=== PATIENT | female | born 1960 | race Caucasian/White ===

== ENCOUNTER → 2016-09-28 | Outpatient (CLI) | payer MEDICARE, BC ==
[~2016-09-28] MED LIST: ACYC800T PO; ALPR0.5T6 PO; BUTA1TAB23 PO; FENO160T PO; LEVO25TA4 PO; MINO100C PO; ONDA-35 PO; SIMV40TA3 PO; SITA100T PO; TIZA6CAP PO; TRAZ150T55 PO; TRIA15CR TP
--- NOTE | 2016-09-28 14:58 | PAIN ---
DATE OF SERVICE: 09/28/2016 DIAGNOSES: Lumbar radiculopathy with lumbar post-laminectomy syndrome. HISTORY OF PRESENT ILLNESS: The patient is a 56-year-old female who returns for followup status post physical therapy. She is now 2 weeks into her ____ physical therapy regimen. She has otherwise been doing exercises and stretching on her own, but she feels that the therapy maybe helping slightly. There was some degree of soreness involved in the low back and bilateral lower extremities at this time. The patient was recently seen on 08/11/2016. We had renewed Medrol Dosepak for her as well as oxycodone, which she reports does help significantly without any side effects. The patient complains of pain in the low back, bilateral lower extremities, radiating into the gluteus, posterior thighs, posterior lower legs to the ankles and feet, rates it a 6 on a scale of 10, currently is aching and dull and says her legs feel like "jelly." The patient reports also pain across the low back, which is aching and stabbing at times, worse with activity, standing, walking, changing positions or sitting for more than 15-20 minutes. Patient reports that she is sleeping better since the therapy started with less pain, but still has some significant pain in the low back and legs themselves. The patient did have a followup appointment with her neurosurgeon, also hide [facility] man with no new findings by her report on either. PHYSICAL EXAMINATION: VITAL SIGNS: The patient's blood pressure is 106/45, pulse 56, respirations 18, temperature is 97.9 degrees Fahrenheit, height is 5 feet 4 inches, weighs 158 pounds. GENERAL: The patient is awake, alert, oriented and appropriate, very pleasant demeanor. HEENT: Shows normocephalic, atraumatic. Extraocular movements are intact and symmetrical. Oral cavity, mucous membranes are moist and pink. Dentition is intact. NECK: Shows anterior throat supple without palpable lymphadenopathy noted. Swallow reflex is symmetrical. Neck shows full rotation and motion of cervical spine both laterally as well as extension and flexion without difficulty. CHEST: Shows normal on inspection. Breath sounds are clear to auscultation bilaterally. HEART: Shows S1 and S2 clear. No murmurs ausculated. ABDOMEN: Soft, nontender, and nondistended. No palpable organomegaly is noted. No rebound or guarding demonstrated. BACK: Shows spine grossly midline. Well-healed surgical scar is noted in the lumbar distribution with a slight flattening of lumbar lordotic curvature. Lumbar paraspinous muscle is diffusely tender throughout the upper, middle and lower distribution of the paraspinous muscles bilaterally without trigger points, without radiation. No tenderness over the sacrum or sacroiliac regions. The patient shows good rotation and motion both laterally as well as extension flexion without significant increase in pain. EXTREMITIES: Lower extremity show deep tendon reflexes at 1+ in the patellar and tendo calcaneus tendons are equal. Motor exam is approximately 4 on a scale of 5 with dorsiflexion and extension, quadriceps and hamstring flexion, but are equal and symmetrical. Peripheral pulses are 1+ posterior tibia and dorsalis pedis pulses bilaterally. PLAN: Options were discussed with the patient. The patient's old chart was reviewed as her current medication regimen and updated. Current review of systems updated today as well. We will plan on conservative measures at this time as she would like to avoid interventional techniques if possible. We did discuss caudal approach epidural steroid injection with she and her using description as well as anatomical models, but we will renew patient's Medrol-Dosepak at this time. Patient was cautioned as to the side effects of the steroid medication especially increased blood sugar while taking it as patient is type 2 diabetic. Also we will refill patient's oxycodone. The patient was informed that this will not be an ongoing refill and we would take care of these medications while she needs them, while she is getting into physical therapy and if she does pursue interventional techniques then we would only be prescribing these while she is being treated at our facility. Patient voices understanding as does her . Patient is given instructions as well as side effects to be aware of with the medications, was encouraged to followup with physical therapy, maintain the stretching ____ exercises that they are instructing her to do at home religiously, maintain hydration status as well. Patient will followup after physical therapy, ____ determine if significant improvement enough or if will pursue caudal epidural steroid injection at that time. MARLEN COHEN MD DR: REJI/ke JOB#: [id number] / [id number]
== END | disposition home or self-care (01) ==
LOC: PNCL 08:13
PROVIDERS: ATTEND Anesthesiology
DX: M54.16 Radiculopathy, lumbar region (principal); M96.1 Postlaminectomy syndrome, not elsewhere classified
CPT/HCPCS: G0463

== ENCOUNTER → 2016-11-03 | Outpatient (CLI) | payer MEDICARE, BC ==
--- NOTE | 2016-11-04 05:08 | PAIN ---
DATE OF SERVICE: 11/03/2016 DIAGNOSES: 1. Lumbar radiculopathy. 2. Post-lumbar laminectomy syndrome. HISTORY OF PRESENT ILLNESS: The patient is a 56-year-old female who returns for followup, last seen on 09/28/2016, at which time, patient was for physical therapy, she did about 3 weeks of this and the pain was getting worse in her low back and bilateral lower extremities and she had to quit physical therapy. The patient is getting ready to leave the town in about 1 week for a 2-week period and reports she is apprehensive in trying epidural injection at this time as she wants to feel better for her trip, but she is scared that she may be worse with the unknown results with her potential injection. The patient reports that she is doing well; however, with the low back and the pain radiating to bilateral posterior gluteus, posterior thighs, posterior calf, is an 8 on a scale of 10 this morning, but taking oxycodone has been decreasing it to a fairly good extend about 3, occasionally 3-4 tablets a day on average. The patient reports no side effects of the medication, at about 75% improvement without side effects. The patient reports a constant aching pain rated an 8 in the low back, bilateral lower extremities as it was previously. The patient reports no new motor or sensory deficits, no new bowel or bladder incontinence or other complaints. PHYSICAL EXAMINATION: VITAL SIGNS: The patient's blood pressure 120/71, pulse 74, respirations 18, temperature is 98.2 degrees Fahrenheit, height 5 feet 4 inches, weight is 154 pounds. GENERAL: The patient is awake, alert, oriented, appropriate, very pleasant demeanor. HEENT: Head shows normocephalic and atraumatic. The patient wears eye glasses. Extraocular movements are intact and symmetrical. Oral cavity shows mucous membranes moist and pink. NECK: Shows anterior throat supple without palpable lymphadenopathy noted. Swallow reflex is symmetrical. CHEST: Shows normal on inspection. Breath sounds are clear to auscultation bilaterally. HEART: Shows S1 and S2 clear. No murmurs auscultated. ABDOMEN: Obese, soft, nontender, nondistended. No palpable organomegaly. No rebound or guarding demonstrated. BACK: Shows spine grossly midline, some minor flattening of lumbar lordotic curvature previously, well-healed surgical scarring noted. Lumbar paraspinous musculature is normal on inspection and symmetrical, with palpation, is moderately tender diffusely, but firm with normal muscle girth in the upper, middle and lower distribution, more tender in lower distribution bilaterally without trigger points or radiation, without asymmetry, but no tenderness over the sacrum or sacroiliac regions. LOWER EXTREMITIES: Showed deep tendon reflexes at 1+ in the patellar and tendo calcaneus tendons. Motor exam is approximately 4 on a scale of 5, but is symmetrical with dorsiflexion, extension, quadriceps and hamstring flexion and is equal. Peripheral pulses are 1+ posterior tibial and dorsalis pedis pulses. No peripheral edema is noted bilaterally. Options were discussed with the patient and the patient's old chart was reviewed as her current medication regimen updated. Current review of systems updated today as well. Discussed trying a Medrol Dosepak and taking one with her as well on her trip ____ for 2 weeks. Also, we will refill the patient's oxycodone at 10 mg, 100 tablets for one month or more supply. The patient was given instruction as well as side effects to be aware of each of the medications. Also, encouraged to increase her stretching and strengthening and activity as tolerated. We also talked for about starting some water therapy through physical therapy when she returns from her trip as well as possible caudal epidural steroid injection at that time. The patient was given instruction as well as side effects to be aware of the use of her medications. We will follow up as scheduled. MARLEN COHEN MD DR: REJI/ke JOB#: [id number] / [id number]
== END | disposition home or self-care (01) ==
LOC: PNCL 09:53
PROVIDERS: ATTEND Anesthesiology
DX: M54.16 Radiculopathy, lumbar region (principal); M96.1 Postlaminectomy syndrome, not elsewhere classified
CPT/HCPCS: 99212

== ENCOUNTER → 2016-12-20 | Outpatient (CLI) | payer BC ==
[~2016-12-20] MED LIST changes: +OXYC-250 PO
--- NOTE | 2016-12-21 05:43 | PAIN ---
DATE OF SERVICE: 12/20/2016 PROGRESS NOTE FOR PAIN CLINIC DIAGNOSIS: Lumbar radiculopathy with post-lumbar laminectomy syndrome. HISTORY OF PRESENT ILLNESS: The patient is a 56-year-old female who returns for followup status post evaluation and medication management with oxycodone. The patient has done well with this, but it is becoming less and less effective for her. The patient still has significant pain in her low back and bilateral lower extremities. She is getting more frustrated with her pain as it is significant, since she got back from vacation, she was unable to walk some of the distances that she needed to do while she was there and this was disappointing as well. The patient reports it as an aching, sharp, shooting pain, as cramping, tingling, occasionally unbearable with radiating and constant pain as well, worse with walking, standing, anywhere from a 6-9 on a scale of 10, currently a 6, but it can be as high as a 9 with activity. The patient has had previous back surgery, did have an MRI scan from 02/2016 showing good interbody fusion L5-S1 without any misalignment noted, but disk bulges at L4-L5 and L3-L4 and S3 perineural cysts bilaterally as well. The patient reports no new motor or sensory deficits, no new bowel or bladder incontinence and is somewhat frustrated with her pain situation currently, but is willing to try new intervention. We discussed interventional techniques. She has had many of these in the past and is somewhat leery to try this, but Medrol Dosepak only helped for 1 or 2 days the last time she took one, which was after her last visit here, early part of November as well. PHYSICAL EXAMINATION: VITAL SIGNS: Today, the patient's blood pressure is 98/59, pulse 70, respirations are 20, temperature is 97.8 degrees Fahrenheit, height is 5 feet 4 inches, weight is 157 pounds. GENERAL: The patient is awake, alert, oriented, appropriate, has a very pleasant demeanor. HEENT: Shows normocephalic, atraumatic. Extraocular movements are intact, symmetrical. Oral cavity, mucous membranes are moist and pink. Dentition is intact. NECK: Shows anterior throat supple without palpable lymphadenopathy noted. Swallow reflex is symmetrical. CHEST: Shows normal on inspection. Breath sounds are clear to auscultation bilaterally. HEART: Shows S1 and S2 clear. ABDOMEN: Obese, soft, nontender, nondistended. No palpable organomegaly is noted. No rebound or guarding demonstrated. BACK: Shows spine with well-healed surgical scar in the lumbar distribution. Lumbar paraspinous muscle shows some [id number] tenderness with palpation bilaterally, but without radiation and is somewhat firm and tender, again diffusely throughout. EXTREMITIES: The patient's lower extremities show deep tendon reflexes at 1+ in the patellar and tendo calcaneus tendons, are equal. Motor exam is approximately 4 on a scale of 5 and equal dorsiflexion and extension bilaterally. PLAN: Options were discussed with the patient and the patient's spouse who accompanies her to visit today. We will have the patient see her urologist, which is scheduled for 01/07/2017 and see if there is any neurogenic difficulties with her bladder as she fears from her MRI report, have her return after her Urology visit, we will plan on caudal epidural steroid injection at that time. Again, the patient is very apprehensive about this, but she would like to try if the urologist feels that this will be a reasonable diagnosis, that it is not neurogenic bladder. We did discuss if nothing else ____ Neurosurgery for possible myelogram as indicated. The patient was given refill prescriptions for oxycodone 10 mg with instructions and side effects to be aware of as well, will follow up as scheduled. MARLEN COHEN MD DR: REJI/ke JOB#: [id number] / [id number]
== END | disposition home or self-care (01) ==
LOC: PNCL 13:09
PROVIDERS: ATTEND Anesthesiology
DX: M54.16 Radiculopathy, lumbar region (principal); M96.1 Postlaminectomy syndrome, not elsewhere classified
CPT/HCPCS: G0463

== ENCOUNTER → 2017-02-07 | Outpatient (CLI) | payer BC ==
[~2017-02-07] MED LIST changes: +IOHEXOL 180 MG/ML 10 ML VIAL. ONE; +methylPREDNISolone ACETATE 40 MG/ML VIAL. ONE; +methylPREDNISolone ACETATE 80 MG/ML VIAL. ONE
--- NOTE | 2017-02-08 09:42 | PN ---
DATE: 02/07/2017 DIAGNOSES: Lumbar radiculopathy with post-lumbar laminectomy syndrome. HISTORY OF PRESENT ILLNESS: The patient is a 56-year-old female who returns for followup status post evaluation and medication management with Percocet. The patient reports she is doing fairly well with this and it does decrease the pain by about 75%; however, still there is significant pain in the low back, bilateral lower extremities, radiating to the legs with stabbing, shooting, aching, sharp, radiating, constant pain, which she describes as a 9 on a scale of 10. Reports currently it is 6 on a scale 10 today. We discussed caudal epidural steroid injections in the past. She had not been able to do that until this point secondary to scheduling requirements and hesitancy for the procedure. We discussed this in further detail today and we will plan a date coming up to do that. I discussed with her that I would not keep prescribing any narcotic analgesics without trying some definitive procedures and techniques to try and decrease her pain without those. The patient understands this. The patient reports no new motor or sensory deficits, no new bowel or bladder incontinence or other complaints, but still significant pain is noted. PHYSICAL EXAMINATION: VITAL SIGNS: The patient's blood pressure 131/67, pulse 68, respirations 18, temperature 98.0 degrees Fahrenheit, height is 5 feet 4 inches, weight is 154 pounds. GENERAL: The patient is awake, alert, oriented, appropriate, very pleasant demeanor. HEENT: Shows normocephalic, atraumatic. Extraocular movements are intact and symmetrical. Oral cavity shows mucous membranes moist and pink. Dentition is intact. NECK: Supple without palpable lymphadenopathy noted. Swallow reflex is symmetrical. CHEST: Shows normal on inspection. Breath sounds are clear to auscultation bilaterally. HEART: Shows S1 and S2 clear. No murmurs auscultated. ABDOMEN: Soft, nontender, nondistended. No palpable organomegaly is noted. BACK: Shows spine grossly midline. Some minor flattening of lumbar lordotic curvature with well-healed surgical scars noted. The lumbar paraspinous muscles show some moderate tenderness with palpation throughout the upper, middle, lower distribution of paraspinous muscles, but only diffusely without radiation and appears roughly symmetrical on inspection. Rotational motions shows extension greater than 10 degrees, forward flexion 45 degrees without significant pain reported. EXTREMITIES: Lower extremities show deep tendon reflexes at 1+ in the patellar and tendo calcaneus tendons are equal. Motor exam is approximately 4 on a scale of 5, but is symmetrical with dorsiflexion, extension, quadriceps and hamstring flexion. Options were discussed with the patient. At this time, we will schedule the patient to return in approximately 2 weeks for a caudal epidural steroid injection. Also, we will refill the patient's Percocet with instructions, side effects to be aware of, discussed especially watching hydration levels and constipation risks. The patient will follow up as scheduled. MARLEN COHEN MD DR: REJI/ke JOB#: [id number] / [id number]
== END | disposition home or self-care (01) ==
LOC: PNCL 10:47
PROVIDERS: ATTEND Anesthesiology
DX: M54.16 Radiculopathy, lumbar region (principal); M96.1 Postlaminectomy syndrome, not elsewhere classified
CPT/HCPCS: 99212; J1030; J1040

== ENCOUNTER → 2017-03-07 | Outpatient (CLI) | payer BC ==
[~2017-03-07] MED LIST changes: -IOHEXOL 180 MG/ML 10 ML VIAL. ONE; -ONDA-35 PO; +ONDA4TAB11 PO; -OXYC-250 PO; +OXYC-328 PO; +TRAZ150T49 PO; -TRAZ150T55 PO; -methylPREDNISolone ACETATE 40 MG/ML VIAL. ONE; -methylPREDNISolone ACETATE 80 MG/ML VIAL. ONE
== END | disposition home or self-care (01) ==
LOC: PNCL 09:29
PROVIDERS: ATTEND Anesthesiology
DX: M54.16 Radiculopathy, lumbar region (principal); M96.1 Postlaminectomy syndrome, not elsewhere classified
CPT/HCPCS: G0463

== ENCOUNTER → 2017-04-05 | Outpatient (CLI) | payer BC ==
--- NOTE | 2017-04-05 13:24 | PAIN ---
DATE OF SERVICE: 04/05/2017 PROGRESS NOTE FOR PAIN CLINIC DIAGNOSIS: Lumbar radiculopathy with post-lumbar laminectomy syndrome. HISTORY OF PRESENT ILLNESS: The patient is a 56-year-old female who returns for followup status post medication management with oxycodone. The patient reports she is doing fairly well with about a 50% improvement with the medication, has been recently helping her mother move to a new location has been increasing her activity with greater pain in the base of the neck, shoulders, upper back, especially in the mid back and lower extremities, radiating bilaterally into the right and left lower extremities, somewhat worse on the right at this time, but present bilaterally. The patient reports it is radiating, constant, severe, stabbing, burning, tingling, shooting, sharp and aching, rates as 9 on a scale of 10, worsen as 6 on a scale of 10 today. The patient reports no new motor or sensory deficits, no new bowel or bladder incontinence, awakens her from her sleep. She sleeps about 4 hours at night, she has to reposition, change positions and get out of bed to decrease the pain. The patient reports no new motor or sensory deficits, no new bowel or bladder incontinence. Reports she has a court date coming up for her medical hearing on 05/24 in [facility] for her post award medical hearing and is hoping that she can get some insurance coverage from this or after this for a caudal epidural steroid injections have been recommending this for several months. The patient was first seen in 06/2016 with pending the hearing and insurance. Qualifications and potential coverage from her upcoming post-award hearing to cover the caudal epidural steroid injections as well as workers complications for her low back pain. The patient is wishing to avoid any out of pocket expenses are possible. I explained to her we have been very lenient with this as well and she has been taking oxycodone for about coming up in 1 year and we will no longer prescribe this on a long-term basis. If she is unable to get treatment through our office, we need to decide that and hopefully this new court date will have some information or she may be able to receive the treatments besides the medication management, the patient agrees and understands as well. PHYSICAL EXAMINATION: VITAL SIGNS: The patient's blood pressure is 113/55, pulse 51, respirations 18, temperature 97.5 degrees Fahrenheit, height is 5 feet 4 inches, weight is 152 pounds. GENERAL: The patient is awake, alert, oriented, appropriate, very pleasant demeanor. HEENT: Head shows normocephalic, atraumatic. The patient wears eye glasses. Extraocular movements are intact and symmetrical. Oral cavity: Mucous membranes moist and pink. Dentition is intact. NECK: Shows anterior throat supple without palpable lymphadenopathy noted. Swallow reflex is symmetrical. CHEST: Shows normal on inspection. Breath sounds are clear to auscultation bilaterally. HEART: Shows S1 and S2 clear. ABDOMEN: Soft, nontender, nondistended. No palpable organomegaly, no rebound or guarding demonstrated. BACK: Shows spine grossly midline. Lumbar paraspinous musculature shows some moderate tenderness, again well healed scars noted on inspection. Muscles show increased tenderness in the low lumbar distribution, free firm and tender without radiation, without specific trigger points, but firm diffusely. No tenderness over the sacrum or sacroiliac regions. The patient does show good rotational motion with some minor limitation in extension, but not with forward flexion of lumbar spine. EXTREMITIES: Lower extremities show deep tendon reflexes at 1+/4 in the patellar and tendo calcaneus tendons. Motor exam is strong with dorsiflexion and extension rated at 5/5 and equal. Options were discussed with the patient and the patient's old chart was reviewed as her current medication regimen and updated. Current review of systems updated today as well and we will refill the patient's Percocet at 100 tablets 10 mg with instructions, side effects to be aware of discussed. Also discussed the need to discontinue long-term of this medication is not going to help for much longer and we would not be refilling this on a long-term basis. The patient understands once again waiting court date in 05/24 and will plan on caudal epidural steroid injection after this. MARLEN COHEN MD DR: REJI/ke JOB#: [id number] / [id number]
== END | disposition home or self-care (01) ==
LOC: PNCL 09:37
PROVIDERS: ATTEND Anesthesiology
DX: M54.16 Radiculopathy, lumbar region (principal); M96.1 Postlaminectomy syndrome, not elsewhere classified
CPT/HCPCS: G0463

== ENCOUNTER → 2017-04-27 | Outpatient (CLI) | payer BC, OTHER ==
[~2017-04-27] MED LIST changes: +IOHEXOL 180 MG/ML 10 ML VIAL. ONE; +methylPREDNISolone ACETATE 40 MG/ML VIAL. ONE; +methylPREDNISolone ACETATE 80 MG/ML VIAL. ONE
--- NOTE | 2017-04-27 23:34 | PAIN ---
DATE OF SERVICE: 04/27/2017 DIAGNOSIS: Lumbar radiculopathy with post-lumbar laminectomy syndrome. HISTORY OF PRESENT ILLNESS: The patient is a 56-year-old female who returns for followup status post previous medication management and working things with her. Workers' compensation insurance has finally approved her to have procedural intervention today. We discussed a caudal epidural steroid injection for several months now and she would like to proceed with this today as we did get the clearance from her worker's compensation insurance to cover it. The patient reports still significant pain in the low back, bilateral lower extremities, somewhat worse on the right than the left, but present bilaterally. The patient reports no new motor or sensory deficits, but still has significant pain, rated a 10 on a scale of 10 at its worst, is 7 at its least and is currently an 8 on a scale of 10. The patient reports it is aching, sharp, shooting, stabbing, tingling, radiating, constant, unbearable and severe, worse with activity, standing, walking, better with sitting or lying down, but does waking her from sleep about every 4 hours, so about twice a night on most nights, so she can reposition, get out of bed, change positions or take pain medication to get back to sleep. The patient reports no new motor or sensory deficits. No new bowel or bladder incontinence or other complaints. PHYSICAL EXAMINATION: VITAL SIGNS: The patient's blood pressure 103/62, pulse 67, respirations 20, temperature 96.7 degrees Fahrenheit, height is 5 feet 4, she weighs 148 pounds. GENERAL: The patient is awake, alert, oriented, appropriate, very pleasant demeanor. HEENT: Exam shows normocephalic, atraumatic. Extraocular movements are intact and symmetrical. Oral cavity, mucous membranes are moist and pink. Dentition is intact. NECK: Shows anterior throat supple without palpable lymphadenopathy noted. Swallow reflex is symmetrical. CHEST: Shows normal on inspection. Breath sounds are clear to auscultation bilaterally. HEART: Shows S1 and S2 clear. ABDOMEN: Soft, nontender, nondistended. BACK: Shows spine grossly at midline. Well healed surgical scar is noted in the lumbar distribution. Lumbar paraspinous musculature shows some moderate tenderness with palpation diffusely throughout the middle and lower distribution, but without radiation. No tenderness over the sacrum or sacroiliac regions. EXTREMITIES: Lower extremities showed deep tendon reflexes at 1+ in the patellar and tendo-calcaneus tendons. Motor exam is strong with 5/5 dorsiflexion, extension and equal. Options were discussed with the patient. The patient's old chart was reviewed as her current medication regimen and updated. Current review of systems is updated today as well and we will proceed with a caudal approach epidural steroid injection today with fluoroscopic guidance. Risks were again discussed including, but not limited to bleeding, infection, possibility of epidural hematoma and subsequent neurologic compromise, dural puncture, headaches, spinal cord and/or nerve damage, side effects of steroid medication and poor results regarding pain control. The patient understands and wished to proceed. The patient will return to the clinic in approximately 2 weeks for followup, was counseled on return appointment, activity level and side effects to be aware of. DIAGNOSIS: Lumbar radiculopathy with post-lumbar laminectomy syndrome. PROCEDURE: Caudal approach epidural steroid injection using C-arm fluoroscopic guidance under sterile prep and drape using local anesthetic. MEDICATION INJECTED: A total of 120 mg of Depo-Medrol plus 10 mL of preservative-free normal saline, 2 mL of Isovue for contrast. CONDITION AT DISCHARGE: Stable. The patient tolerated the procedure well, had no complications. MARLEN COHEN MD DR: REJI/ke JOB#: [id number] / [id number]
== END | disposition home or self-care (01) ==
LOC: PNCL 13:08
PROVIDERS: ATTEND Anesthesiology
DX: M54.16 Radiculopathy, lumbar region (principal); M96.1 Postlaminectomy syndrome, not elsewhere classified; Z09 Encounter for follow-up examination after completed treatment for conditions other than malignant neoplasm; Z88.0 Allergy status to penicillin; Z88.2 Allergy status to sulfonamides; Z88.8 Allergy status to other drugs, medicaments and biological substances
CPT/HCPCS: 62323; J1030; J1040

== ENCOUNTER → 2017-05-19 | Outpatient (CLI) | payer OTHER ==
[~2017-05-19] MED LIST changes: -IOHEXOL 180 MG/ML 10 ML VIAL. ONE; -methylPREDNISolone ACETATE 40 MG/ML VIAL. ONE; -methylPREDNISolone ACETATE 80 MG/ML VIAL. ONE
--- NOTE | 2017-05-19 15:18 | PAIN ---
DATE OF SERVICE: 05/19/2017 DATE OF SERVICE: 05/19/2017 DIAGNOSES: Lumbar radiculopathy with post-lumbar laminectomy syndrome. HISTORY OF PRESENT ILLNESS: The patient is a 57-year-old female who returns for followup status post caudal epidural steroid injection x1 on 04/27/2017. The patient reports she did very well with about 50% improvement in her low back and bilateral lower extremity pain for about 2 weeks following the injection. The patient reports over the past day or two, it has begun to return in the low back, bilateral lower extremities, but only to a moderate extent. The patient reports it is a 5 on a scale of 10 currently and as average. It can be as high as 8 with activity, standing, walking, but generally it has been well controlled. The patient reports it as tingling, aching, sharp and shooting with radiating constant pain as well. Wakes her from sleep, but she is sleeping about 4-5 hours at a time. She can reposition, take pain medication and get out of the bed, change positions and is able to get back to sleep. The patient reports no new motor or sensory deficits, no new bowel or bladder incontinence or other complaints. She has done well initially with the first injection. PHYSICAL EXAMINATION: VITAL SIGNS: Today, the patient's blood pressure 104/56, pulse 72, respirations are 18, temperature 97.8 degrees Fahrenheit, height 5 feet 4 inches, weight 148 pounds. GENERAL: The patient is awake, alert, oriented, appropriate, very pleasant demeanor. HEENT: Head shows normocephalic, atraumatic. Extraocular movements are intact and symmetrical. Oral cavity shows mucous membranes moist and pink. Dentition intact. NECK: Shows anterior throat supple without palpable lymphadenopathy noted. Swallow reflex is symmetrical. CHEST: Shows normal on inspection. Breath sounds clear to auscultation bilaterally. HEART: Shows S1, S2 clear. ABDOMEN: Soft, nontender, nondistended. BACK: Shows spine grossly midline. Well-healed surgical scars again noted. Lumbar lordotic curvature is slightly flattened with palpation shows some [id number] tenderness in the low lumbar distribution, but only diffusely without radiation. The patient shows good rotational motion both laterally as well as extension and flexion, minor pain reported with extension. No tenderness over the sacrum or sacroiliac regions. EXTREMITIES: Lower extremities show deep tendon reflexes at 1+ in the patellar and tendo calcaneus tendons are equal. Motor exam is strong with 5/5 dorsiflexion and extension bilaterally. Peripheral pulses are 1+ posterior tibial. No peripheral edema is noted. PLAN: Options were discussed with the patient. The patient's old chart was reviewed as her current medication regimen updated. Current review of systems updated today as well. We will preauthorize the patient for a second caudal approach epidural steroid injection. Once this is approved, the patient will return. Also counseled the patient on activity levels as well as increasing activity as tolerated, maintain good hydration level and will return as scheduled for a second caudal approach epidural steroid injection as discussed. MARLEN COHEN MD DR: REJI/ke JOB#: [id number] / [id number]
== END | disposition home or self-care (01) ==
LOC: PNCL 13:03
PROVIDERS: ATTEND Anesthesiology
DX: M54.16 Radiculopathy, lumbar region (principal)
CPT/HCPCS: 99212

== ENCOUNTER → 2017-06-02 | Outpatient (CLI) | payer OTHER ==
[~2017-06-02] MED LIST changes: +IOHEXOL 180 MG/ML 10 ML VIAL. ONE; +methylPREDNISolone ACETATE 40 MG/ML VIAL. ONE; +methylPREDNISolone ACETATE 80 MG/ML VIAL. ONE
--- NOTE | 2017-06-03 11:38 | PAIN ---
DATE OF SERVICE: 06/02/2017 DATE OF SERVICE: 06/02/2017 DIAGNOSES: Lumbar radiculopathy with post-lumbar laminectomy syndrome. HISTORY OF PRESENT ILLNESS: The patient is a 57-year-old female who returns for followup status post caudal approach epidural steroid injection x 1 with about 50% improvement pain. Pain is still in the low back, bilateral lower extremities with equal right and left essentially pain at this time. The patient reports no new motor or sensory deficits, no new bowel or bladder incontinence or other complaints, but still significant pain, still taking pain medication fairly consistently, which is oxycodone 10 mg. The patient reports no side effects with the medication, about 50% improvement from it alone. The patient reports no new motor or sensory deficits. Still has pain in low back, bilateral lower extremities as noted mostly in the posterior lateral thighs to the calves bilaterally, tingling, stabbing, constant in quality, also shooting, aching and sharp anywhere from an 8 to a 6 on a scale of 10 on average. When it is low, it is about a 5 and it is 5 today. The patient reports it awakens her from sleep. She sleeps about 4 to 5 hours at a time. She has to reposition, take pain medication and get out of bed, but she is able to get back to sleep when she does this. PHYSICAL EXAMINATION: VITAL SIGNS: Shows blood pressure 114/58, pulse 78, respirations 18, temperature 97.8 degrees Fahrenheit, height is 5 feet 4 inches, weight is 152 pounds. GENERAL: The patient is awake, alert, oriented, appropriate, very pleasant demeanor. HEENT: Head is normocephalic, atraumatic. Extraocular movements are intact, symmetrical. Oral cavity, mucous membranes are moist and pink. Dentition is intact. NECK: Shows anterior throat supple without palpable lymphadenopathy noted. Swallow reflex is symmetrical. CHEST: Shows normal on inspection. Breath sounds are clear to auscultation bilaterally. HEART: Shows S1 and S2 clear. ABDOMEN: Soft, nontender, nondistended. No palpable organomegaly. No rebound or guarding demonstrated. BACK: Shows spine grossly midline. Well healed surgical scars noted in the lumbar distribution. Lumbar paraspinous musculature shows symmetrical on inspection with palpation shows some fairly moderate tenderness with palpation throughout the upper, middle, lower distribution of paraspinous muscles diffusely, but very firm, very tender with palpation. No tenderness over the sacrum or sacroiliac regions. EXTREMITIES: Lower extremities showed deep tendon reflexes at 1+/4 in the patellar tendons. Motor exam is strong with 5/5 dorsiflexion, extension pulses are 1+ posterior tibial. No peripheral edema is noted. Options were discussed with the patient and the patient's old chart was reviewed as her current medication regimen and updated. Current review of systems updated today as well. We will proceed with the second in this series caudal approach epidural steroid injection with fluoroscopic guidance. Risks were again discussed including, but not limited to bleeding, infection, possibility of epidural hematoma and subsequent neurologic compromise, dural puncture, headaches, spinal cord and/or nerve damage, side effects of steroid medication and poor results regarding pain control. The patient understands and wishes to proceed. The patient will return to clinic in approximately 2 weeks for followup. She was counseled as to return appointment, activity level and side effects to be aware of. DIAGNOSIS: Lumbar radiculopathy with post-lumbar laminectomy syndrome. PROCEDURE: Caudal approach epidural steroid injection using C-arm fluoroscopic guidance under sterile prep and drape using local anesthetic. MEDICATION INJECTED: A total of 120 mg Depo-Medrol plus a total of 10 mL of preservative-free normal saline and 2 mL of Isovue for contrast. CONDITION AT DISCHARGE: Stable. The patient tolerated procedure well, had no complications. MARLEN COHEN MD DR: REJI/ke JOB#: [id number] / [id number]
== END | disposition home or self-care (01) ==
LOC: PNCL 13:03
PROVIDERS: ATTEND Anesthesiology
DX: M54.16 Radiculopathy, lumbar region (principal); M96.1 Postlaminectomy syndrome, not elsewhere classified; Z88.0 Allergy status to penicillin; Z88.2 Allergy status to sulfonamides; Z88.8 Allergy status to other drugs, medicaments and biological substances
CPT/HCPCS: 62323; J1030; J1040

== ENCOUNTER → 2017-06-28 | Outpatient (CLI) | payer OTHER ==
[~2017-06-28] MED LIST changes: -IOHEXOL 180 MG/ML 10 ML VIAL. ONE; -methylPREDNISolone ACETATE 40 MG/ML VIAL. ONE; -methylPREDNISolone ACETATE 80 MG/ML VIAL. ONE
--- NOTE | 2017-06-28 10:39 | PAIN ---
DATE OF SERVICE: 06/28/2017 PROGRESS NOTE FOR PAIN CLINIC DIAGNOSES: Lumbar radiculopathy with post-lumbar laminectomy syndrome. HISTORY OF PRESENT ILLNESS: The patient is a 57-year-old female who returns for followup status post caudal epidural steroid injection x 2. The patient reports about 60% improvement after the last injection, somewhat better after the first injection but still pain radiating to bilateral lower extremities, posterior gluteus, thighs and caves as it was previously has returned after about 3 weeks and the pain had been increasing over this past week. The patient reports it as a 9 on a scale 10 at its worst, 6 on average, 5 on a scale of 10 at least and is 5 today. The patient reports it is radiating, constant, tingling and burning, dull, shooting and aching quality; worse with standing, walking, changing positions but is waking her from sleep about every 4-5 hours and she has to get up and change positions or taking pain medication during the night. The patient is taking some Percocet, which seems to decrease the pain fairly significantly about 75% . The patient reports no new motor or sensory deficits and no new bowel or bladder incontinence or other complaints. PHYSICAL EXAMINATION: VITAL SIGNS: Today, the patient's blood pressure 104/58, pulse 75, respirations 18, temperature 97.8 degrees Fahrenheit, height is 5 feet 4 inches and weight is 152 pounds. GENERAL: The patient is awake, alert, oriented, appropriate, very pleasant demeanor. HEENT: Shows normocephalic and atraumatic. Extraocular movements intact, symmetrical. Oral cavity, mucous membranes are moist and pink. Dentition is intact. NECK: Shows anterior throat supple without palpable lymphadenopathy noted. Swallow reflex is symmetrical. CHEST: Shows normal on inspection. Breath sounds clear to auscultation bilaterally. HEART: Shows S1 and S2 clear. No murmurs auscultated. ABDOMEN: Soft, nontender and nondistended. BACK: Shows spine grossly in the midline. Lumbar paraspinous muscle shows some moderate tenderness with well-healed surgical scars again noted, diffusely tender but without radiation of pain without trigger points asymmetry. The patient shows good rotational motion with some minor limitation in extension but not with forward flexion. EXTREMITIES: Lower extremities show deep tendon reflexes at 1+ in the patellar and tendo-calcaneus tendons are equal. Motor exam is strong with 5/5 dorsiflexion, extension, quadriceps and hamstring flexion and equal. Peripheral pulses are 1+ posterior tibia. No peripheral edema is noted. Options were discussed with the patient and the patient's old chart was reviewed as her current medication regimen updated. Current review of systems updated today as well and we will preauthorize the patient for a third caudal approach epidural steroid injection. She did very well with the first 2 with pain returning in a radicular fashion was noted but significant improvement for about 3 weeks after last injection. The patient will be given refill prescription for Percocet with instructions, side effects to be aware of. Also, try Medrol Dosepak as she has done well with these in the past as well. The patient was given instruction as well as side effects to be aware of each of the medications and we will follow up in approximately one week. We will plan on third caudal approach epidural steroid injection at that time. MARLEN COHEN MD DR: REJI/ke JOB#: [id number] / [id number]
== END | disposition home or self-care (01) ==
LOC: PNCL 09:13
PROVIDERS: ATTEND Anesthesiology
DX: M54.16 Radiculopathy, lumbar region (principal)
CPT/HCPCS: 99212

== ENCOUNTER → 2017-07-21 | Outpatient (CLI) | payer OTHER ==
[~2017-07-21] MED LIST changes: +IOHEXOL 180 MG/ML 10 ML VIAL. ONE; +methylPREDNISolone ACETATE 40 MG/ML VIAL. ONE; +methylPREDNISolone ACETATE 80 MG/ML VIAL. ONE
--- NOTE | 2017-07-21 22:38 | PAIN ---
DATE OF SERVICE: 07/21/2017 DIAGNOSES: Lumbar radiculopathy with post-lumbar laminectomy syndrome. HISTORY OF PRESENT ILLNESS: The patient is a 57-year-old female who returns for followup status post caudal epidural steroid injections x 2. The patient reports about 60% improvement after the last injection with the pain returning now and still present in the low back and bilateral lower extremities. The patient reports it is increasing with activity, becoming more radiating, constant, stabbing, tingling, shooting and aching in the low back, bilateral posterior gluteus, posterior thighs, posterior calf, lateral thighs and calves as well and some in the anterior aspect, more on the right than the left. The patient reports it is an 8 on a scale of 10 at its worst, 6 on average, is a 5 at its least and is a 6 today. Again, the patient reports no new motor or sensory deficits. No new bowel or bladder incontinence, but still significant pain. She is taking up to 3 oxycodone a day to try to control the pain, which only controls it by about 50-60% as well. PHYSICAL EXAMINATION: VITAL SIGNS: The patient's blood pressure is 112/74, pulse 65, respirations 16, temperature 97.7 degrees Fahrenheit, height is 5 feet 4 inches, weight is 154 pounds. GENERAL: The patient is awake, alert, oriented, appropriate, very pleasant demeanor. HEENT: Shows normocephalic, atraumatic. Extraocular movements are intact and symmetrical. Oral cavity, mucous membranes are moist and pink. Dentition is intact. NECK: Shows anterior throat supple without palpable lymphadenopathy noted. Swallow reflex is symmetrical. CHEST: Shows normal on inspection. Breath sounds are clear to auscultation bilaterally. HEART: Shows S1 and S2 clear. No murmurs auscultated. ABDOMEN: Soft, nontender, nondistended. No palpable organomegaly is noted. No rebound or guarding demonstrated. BACK: The patient's back shows spine grossly in the midline. Some mild flattening of lumbar lordotic curvature with well-healed surgical scarring noted in the lumbar distribution. Lumbar paraspinous muscle shows symmetrical on inspection with palpation shows some moderate tenderness bilaterally in the lumbar distribution, but without radiation or asymmetry. The patient shows good rotation and motion with some minor limitation with extension, but only secondary to mechanical limitation, not secondary to pain and good forward flexion at about 45 degrees without significant difficulty or pain reported. EXTREMITIES: Lower extremities show deep tendon reflexes at 1+ in the patellar tendons and are equal. Motor exam shows 5/5 dorsiflexion and extension and equal bilaterally. Peripheral pulses are 1+ posterior tibial. No peripheral edema is noted bilaterally as well. Options were discussed with the patient. The patient's old chart was reviewed as her current medication regimen and updated. Current review of systems is updated today as well. We will proceed with a third caudal approach epidural steroid injection in this series with risks again discussed including, but not limited to bleeding, infection, possibility of epidural hematoma, subsequent neurological compromise, dural puncture, headaches, spinal cord and/or nerve damage, side effects of steroid medication and poor results regarding pain control. The patient understands and wished to proceed. The patient will return to the clinic in approximately 2 weeks for followup, was counseled on return appointment, activity level and side effects to be aware of. DIAGNOSIS: Lumbar radiculopathy with post-lumbar laminectomy syndrome. PROCEDURE: Lumbar epidural steroid injection, caudal approach using C-arm fluoroscopic guidance under sterile prep and drape using local anesthetic. Medication injected a total of 120 mg Depo-Medrol plus 10 mL preservative-free normal saline, 2 mL of Isovue for contrast. CONDITION AT DISCHARGE: Stable. The patient tolerated the procedure well, had no complications. MARLEN COHEN MD DR: REJI/ke JOB#: [id number] / [id number]
== END | disposition home or self-care (01) ==
LOC: PNCL 11:12
PROVIDERS: ATTEND Anesthesiology
DX: M54.16 Radiculopathy, lumbar region (principal); M96.1 Postlaminectomy syndrome, not elsewhere classified; Z79.899 Other long term (current) drug therapy; Z88.8 Allergy status to other drugs, medicaments and biological substances; Z88.2 Allergy status to sulfonamides; Z88.0 Allergy status to penicillin
CPT/HCPCS: 62323; J1030; J1040

== ENCOUNTER → 2017-09-07 | Outpatient (CLI) | payer OTHER | END | disposition home or self-care (01) | LOC: PNCL 08:03 | DX: M54.16 Radiculopathy, lumbar region (principal); M96.1 Postlaminectomy syndrome, not elsewhere classified; M54.2 Cervicalgia | CPT/HCPCS: 99212 ==

== ENCOUNTER → 2017-10-06 | Outpatient (CLI) | payer OTHER | END | disposition home or self-care (01) | LOC: PNCL 07:27 | DX: M54.16 Radiculopathy, lumbar region (principal) | CPT/HCPCS: 99212 ==

== ENCOUNTER → 2017-10-28 | Outpatient (CLI) | payer OTHER | END | disposition home or self-care (01) | LOC: PNCL 09:22 | DX: M54.16 Radiculopathy, lumbar region (principal); K59.00 Constipation, unspecified | CPT/HCPCS: 99212 ==

== ENCOUNTER → 2017-11-25 | Outpatient (CLI) | payer OTHER | END | disposition home or self-care (01) | LOC: PNCL 09:46 | DX: M54.16 Radiculopathy, lumbar region (principal); M54.2 Cervicalgia; M96.1 Postlaminectomy syndrome, not elsewhere classified; M25.512 Pain in left shoulder; Z79.891 Long term (current) use of opiate analgesic; Z98.890 Other specified postprocedural states | CPT/HCPCS: 99212 ==

== ENCOUNTER 2018-11-22 20:53 | Emergency (ER) | payer OTHER ==
[~2018-11-22] VITALS: Ht 162.6 cm; Wt 72.6 kg
[~2018-11-22 20:53] MED LIST changes: +DOCU50CA9 PO; +ESZO3TAB28 PO; +HYDR-2769 PO; -IOHEXOL 180 MG/ML 10 ML VIAL. ONE; +LACT1CAP6 PO; -OXYC-328 PO; +OXYC1TAB19 PO; +OXYC1TAB22 PO; +ZOLP5TAB5 PO; -methylPREDNISolone ACETATE 40 MG/ML VIAL. ONE; -methylPREDNISolone ACETATE 80 MG/ML VIAL. ONE; +tumeric
[2018-11-22] MEDS: oxyCODONE/APAP 10/325 1 TAB TABLET PO ONE (21:20)
[2018-11-22 22:49] VITALS: BP 144/73
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
[2018-11-22] MEDS: fentaNYL PF VIAL 100 MCG/2 ML VIAL IM ONE (23:20)
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
[2018-11-23] MEDS ORDERED: DICL50TA4 PO (00:07)
[2018-11-23] MEDS ORDERED: ORPH100T PO (00:07)
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
== END 2018-11-23 00:22 | disposition home or self-care (01) ==
LOC: ER 20:53
DX: S16.1XXA Strain of muscle, fascia and tendon at neck level, initial encounter (principal); S20.212A Contusion of left front wall of thorax, initial encounter; S20.211A Contusion of right front wall of thorax, initial encounter; E11.9 Type 2 diabetes mellitus without complications; Z88.0 Allergy status to penicillin; Z88.5 Allergy status to narcotic agent; Z88.2 Allergy status to sulfonamides; V43.52XA Car driver injured in collision with other type car in traffic accident, initial encounter; Y93.89 Activity, other specified; Y92.410 Unspecified street and highway as the place of occurrence of the external cause; Y99.8 Other external cause status
CPT/HCPCS: 71111; 71120; 72125; 96372; 99284; J3010